=== PATIENT | male | born 1995 | race African-American/Black ===

== ENCOUNTER 2018-02-10 23:51 | Emergency (ER) | payer MEDICAID ==
[~2018-02-10] VITALS: Ht 177.8 cm; Wt 91.0 kg
[2018-02-11] MEDS ORDERED: KETOROLAC 30MG/ML VIAL IV STA (00:16)
[2018-02-11] MEDS ORDERED: ONDANSETRON HCL 4MG/2ML INJ IV STA (00:16)
[2018-02-11 03:28] VITALS: BP 137/68
== END 2018-02-11 03:34 | disposition home or self-care (01) ==
LOC: ER 23:51
DX: S16.1XXA Strain of muscle, fascia and tendon at neck level, initial encounter (principal); S39.012A Strain of muscle, fascia and tendon of lower back, initial encounter; F17.200 Nicotine dependence, unspecified, uncomplicated; Z88.0 Allergy status to penicillin; Z88.1 Allergy status to other antibiotic agents; V49.09XA Driver injured in collision with other motor vehicles in nontraffic accident, initial encounter; W22.11XA Striking against or struck by driver side automobile airbag, initial encounter; Y93.89 Activity, other specified; Y92.89 Other specified places as the place of occurrence of the external cause; Y99.8 Other external cause status
CPT/HCPCS: 70450; 71045; 72100; 72125; 96374; 96375; 99284; J1885; J2405; Z7610; L0172

== ENCOUNTER 2023-07-21 10:29 | Emergency (ER) | payer MEDICAID ==
[~2023-07-21] VITALS: Ht 177.8 cm; Wt 82.0 kg
[2023-07-21 10:30] VITALS: TEMP 97.7; O2SAT 98
[2023-07-21] MEDS: ONDANSETRON HCL 4MG/2ML INJ IV STA (10:58)
[2023-07-21] MEDS: SODIUM CHLORIDE 0.9% 1,000 ML IV ONE (10:58)
[2023-07-21 11:04] LABS: HEMATOCRIT. 48.9 % (42.0-52.0); MEAN CORPUSCULAR HEMOGLOBIN 29.2 pg (28.0-32.0); MEAN CORPUSCULAR HGB CONC 32.8 g/dL (31.0-37.0); PLATELET 269 x1000/uL (130-400); RED BLOOD CELL COUNT 5.49 mill/uL (4.7-6.1); RED CELL DISTRIBUTION WIDTH 13.8 % (11.6-14.6); WHITE BLOOD COUNT 18.4 x1000/uL (4.5-11.0)
[2023-07-21 11:10] LABS: DIFFERENTIAL COMMENT 1
[2023-07-21 11:13] LABS: PROTHROMBIN TIME 10.8 sec (9.6-11.0)
[2023-07-21 11:34] LABS: ALANINE AMINOTRANSFERASE 36 IU/L (10-49); ASPARTATE AMINOTRANSFERASE 105 IU/L (<34); BILIRUBIN TOTAL 0.8 mg/dL (0.1-1.0); CALCIUM 9.5 mg/dL (8.7-10.4); CARBON DIOXIDE 20 mEq/L (21-32); CHLORIDE 108 mEq/L (98-107); GLUCOSE 71 mg/dL (70-105); POTASSIUM 4.6 mEq/L (3.5-5.1); PROTEIN TOTAL 7.7 g/dL (6.0-8.3); SODIUM 142 mEq/L (136-145); UREA NITROGEN BLOOD 12 mg/dL (9-23)
[2023-07-21 12:05] LABS: PLATELET ESTIMATE NORMAL
[2023-07-21] MEDS ORDERED: MORPHINE SULFATE 4 MG/ML INJ (FOR IV/IM USE) IV STA (12:11)
[2023-07-21] MEDS: KETOROLAC 30MG/ML VIAL IV ONE (12:35)
[2023-07-21] MEDS: IOHEXOL-300 100 ML BOTTLE ONE (13:13)
[2023-07-21 13:19] LABS: CLARITY URINE CLEAR (CLEAR); COLOR URINE YELLOW (YELLOW); GLUCOSE URINE NEGATIVE (NEGATIVE); KETONES URINE 3+ (NEGATIVE); LEUKOCYTE ESTERASE URINE NEGATIVE (NEGATIVE); NITRITE URINE NEGATIVE (NEGATIVE); OCCULT BLOOD URINE 1+ (NEGATIVE); PROTEIN URINE 1+ (NEGATIVE); SPECIFIC GRAVITY URINE 1.026 (1.005-1.030); UROBILINOGEN URINE 0.2 E.U./dL (0.2-1.0)
[2023-07-21] MEDS ORDERED: DICY20TA2 MT (13:26)
[2023-07-21] MEDS ORDERED: ONDA4TAB11 PO (13:26)
[2023-07-21 13:29] LABS: MUCUS URINE 3+ /lpf (NONE/TRACE)
[2023-07-21 13:30] VITALS: BP 144/71; PULSE 71; RESP 18
[2023-07-21 13:30] LABS: BACTERIA URINE TRACE; RBC URINE 0-2 /hpf (0-2); WBC URINE 0-2 /hpf (0-2)
[2023-07-21 13:31] LABS: SQUAMOUS EPITHELIAL CELL URINE FEW /lpf (RARE/1+)
[2023-07-21 13:54] LABS: *AMPHETAMINES SCREEN URINE NEGATIVE (NEGATIVE); *BARBITURATES SCREEN URINE NEGATIVE (NEGATIVE); *BENZODIAZEPINES SCREEN URINE NEGATIVE (NEGATIVE); *COCAINE SCREEN URINE PRESUMPTIVE POSITIVE (NEGATIVE); CANNABINOID URINE SCREEN PRESUMPTIVE POSITIVE (NEGATIVE); ECSTASY MDMA SCREEN URINE NEGATIVE (NEGATIVE); METHADONE URINE SCREEN Neg (NEGATIVE); OPIATES URINE SCREEN NEGATIVE (NEGATIVE); PHENCYCLIDINE URINE SCREEN NEGATIVE (NEGATIVE)
== END 2023-07-21 13:49 | disposition home or self-care (01) ==
LOC: ER 10:29
DX: R11.2 Nausea with vomiting, unspecified (principal); R10.9 Unspecified abdominal pain; D72.829 Elevated white blood cell count, unspecified; I10 Essential (primary) hypertension
CPT/HCPCS: 80053; 80305; 81003; 83690; 85025; 85610; 36415; 74177; 96361; 96374; 99285; Q9967; J1885; J2405; J7030; Z7610 ×2